=== PATIENT | female | born 1930 | race Caucasian/White ===

== ENCOUNTER 2019-02-01 13:30 | Emergency (ER) | payer OTHER ==
[~2019-02-01] VITALS: Wt 52.4 kg
[2019-02-01] MEDS ORDERED: morphine 4 MG/ML VIAL IV STA (13:45)
[2019-02-01] MEDS ORDERED: ONDANSETRON 4 MG INJ IV STA (13:45)
[2019-02-01] MEDS ORDERED: ALEN70TA5 PO (16:08)
[2019-02-01] MEDS ORDERED: ATOR20TA38 PO (16:09)
[2019-02-01] MEDS ORDERED: NOL20 PO (16:09)
[2019-02-01] MEDS ORDERED: CLOP75TA19 PO (16:09)
[2019-02-01] MEDS ORDERED: PHEN100C PO (16:11)
[2019-02-01] MEDS ORDERED: LATA2.5D19 BOTH EYES (16:12)
[2019-02-01] MEDS ORDERED: AMPICILLIN/SULB 3 GM/NS (PMX) 100 ML IVPB ONE (16:30)
--- NOTE | 2019-02-01 16:30 | ERD ---
ER Documentation Chief Complaint Chief Complaint GLF WITH COMPLAINTS OF LEFT EYE INJURY AND BLEEDING. NO LOC. NO NEURO DEF HPI Patient is an 88-year-old female who presents with a fall and eye injury. The patient had a trip and fall just prior to arrival. She injured her left eye and is unable to see out of the eye at this time. There is blood from the eye. She is on Plavix. She denies loss of consciousness. She has had no treatment as of yet. She was brought in by ambulance. ROS All systems reviewed and are negative except as per history of present illness. Medications Home Meds Reported Medications Latanoprost (Xalatan) 2.5 Ml Drops, 1 DROP BOTH EYES QHS, #1 BOTTLE 02/01/19 Phenytoin* Sodium Extended (Dilantin*) 100 Mg Capsule, 0 PO BID, CAP TAKE 100MG-QAM AND 200MG-QPM 02/01/19 Tamoxifen Citrate* (Tamoxifen Citrate*) 20 Mg Tab, 20 MG PO DAILY, TAB 02/01/19 Atorvastatin Calcium* (Atorvastatin Calcium*) 20 Mg Tablet, 20 MG PO QHS, #30 TAB 02/01/19 Clopidogrel Bisulfate* (Clopidogrel Bisulfate*) 75 Mg Tablet, 75 MG PO DAILY, #30 TAB 02/01/19 Alendronate Sodium* (Fosamax*) 70 Mg Tablet, 70 MG PO Q7D, #4 TAB 02/01/19 Allergies Allergies: Coded Allergies: No Known Allergy (Unverified , 02/01/19) PMhx/Soc History of Surgery: Yes (Brain, L breast, bilat knee, R leg vascular) Anesthesia Reaction: No Hx Neurological Disorder: Yes (Seizures) Hx Respiratory Disorders: No Hx Cardiac Disorders: Yes (HTN) Hx Psychiatric Problems: No Hx Miscellaneous Medical Probl: No Hx Alcohol Use: No Hx Substance Use: No Hx Tobacco Use: No Smoking Status: Never smoker FmHx Family History: No diabetes Physical Exam Vitals Vital Signs Date Temp Pulse Resp B/P (MAP) Pulse Ox O2 O2 Flow FiO2 Time Delivery Rate 02/01/19 70 18 157/73 93 Room Air 15:30 (101) 02/01/19 98.1 70 18 183/78 98 13:54 (113) Physical Exam Const: Moderate distress Head: Atraumatic Eyes: [place] hyphema to the left eye with blood drainage and likely blood in the anterior chamber, no light perception to the left eye and unable to count fingers ENT: Normal External Ears, Nose and Mouth. Neck: Full range of motion. No meningismus. Resp: Clear to auscultation bilaterally Cardio: Regular rate and rhythm, no murmurs Abd: Soft, non tender, non distended. Normal bowel sounds Skin: No petechiae or rashes Back: No midline or flank tenderness Ext: No cyanosis, or edema Neur: Awake and alert Psych: Normal Mood and Affect Result Diagram: 02/01/19 1433 02/01/19 1433 Results 24 hrs Laboratory Tests Test 02/01/19 14:33 White Blood Count 7.2 10^3/ul Red Blood Count 3.91 10^6/ul Hemoglobin 12.4 g/dl Hematocrit 37.0 % Mean Corpuscular Volume 94.6 fl Mean Corpuscular Hemoglobin 31.7 pg Mean Corpuscular Hemoglobin Concent 33.5 g/dl Red Cell Distribution Width 12.8 % Platelet Count 255 10^3/UL Mean Platelet Volume 9.7 fl Immature Granulocytes % 0.400 % Neutrophils % 53.7 % Lymphocytes % 33.2 % Monocytes % 8.7 % Eosinophils % 2.8 % Basophils % 1.2 % Nucleated Red Blood Cells % 0.0 /100WBC Immature Granulocytes # 0.030 10^3/ul Neutrophils # 3.9 10^3/ul Lymphocytes # 2.4 10^3/ul Monocytes # 0.6 10^3/ul Eosinophils # 0.2 10^3/ul Basophils # 0.1 10^3/ul Nucleated Red Blood Cells # 0.0 10^3/ul Prothrombin Time 12.4 Sec Prothrombin Time Ratio 1.0 INR International Normalized Ratio 0.91 Activated Partial Thromboplast Time 26.9 Sec Sodium Level 142 mmol/L Potassium Level 3.8 mmol/L Chloride Level 109 mmol/L Carbon Dioxide Level 26 mmol/L Anion Gap 7 Blood Urea Nitrogen 15 mg/dl Creatinine 0.72 mg/dl Est Glomerular Filtrat Rate mL/min mL/min Glucose Level 99 mg/dl Calcium Level 8.7 mg/dl Current Medications Medications Dose Sig/Kimberlee Start Time Status Last (Trade) Ordered Route PRN Stop Time Admin Dose Reason Admin Ondansetron 4 mg ONCE STAT 02/01/19 DC 02/01/19 HCl (Zofran IV 13:45 14:49 Inj) 02/01/19 13:47 Morphine 4 mg ONCE STAT 02/01/19 DC 02/01/19 Sulfate IV 13:45 14:50 (morphine) 02/01/19 13:47 Ampicillin 100 ml @ ONCE ONCE 02/01/19 Sodium/ 100 mls/hr IVPB 16:30 Sulbactam 02/01/19 17:29 Sodium Procedures/MDM CT brain negative for acute fracture or bleed per radiology. CT orbits shows air in the left lobe per radiology. CT cervical spine shows no fracture per radiology. Patient is an 88-year-old female presents with a fall and left globe rupture with hyphema. The patient was given Unasyn empirically. The patient is on Plavix. The patient will be transferred to [facility] for insurance reasons and higher level of care for ophthalmology consultation. I spoke with Dr. Copeland who has accepted the patient. Critical Care: Time: 35 minutes excluding all billable procedures. Treatments/Evaluations: Close monitoring and treatment of unstable vital signs, cardiorespiratory, and neurologic status, while maintaining tight balance of fluid, respiratory, and cardiac interventions. Departure Diagnosis: Primary Impression: Hyphema Laterality: left Qualified Codes: H21.02 - Hyphema, left eye Additional Impressions: Fall Encounter type: initial encounter Qualified Codes: W19.XXXA - Unspecified fall, initial encounter Ruptured globe Encounter type: initial encounter Laterality: left Qualified Codes: S05.32XA - Ocular laceration without prolapse or loss of intraocular tissue, left eye, initial encounter Condition: Critical DOMITILA SANDERS MD Feb 01, 2019 16:30
[2019-02-01 17:00] VITALS: BP 156/69; PULSE 67; RESP 18
== END 2019-02-01 18:16 | disposition short-term general hospital (02) ==
LOC: E/R 13:30
DX: S05.32XA Ocular laceration without prolapse or loss of intraocular tissue, left eye, initial encounter (principal); H21.02 Hyphema, left eye; I10 Essential (primary) hypertension; W01.0XXA Fall on same level from slipping, tripping and stumbling without subsequent striking against object, initial encounter; Y92.9 Unspecified place or not applicable; Z79.02 Long term (current) use of antithrombotics/antiplatelets
CPT/HCPCS: 70450; 70480; 72125; 80048; 85025; 85610; 85730; 96374; 96375; 99285; J0295; J2270; J2405